=== PATIENT | female | born 1980 | race Caucasian/White ===

== ENCOUNTER 2021-12-28 14:49 | Emergency (ER) | payer MEDICAID ==
[~2021-12-28] VITALS: Ht 152.4 cm; Wt 77.0 kg
[2021-12-28 18:31] LABS: CLARITY URINE CLEAR (CLEAR); COLOR URINE YELLOW (YELLOW); KETONES URINE NEGATIVE (NEGATIVE); LEUKOCYTE ESTERASE URINE NEGATIVE (NEGATIVE); NITRITE URINE NEGATIVE (NEGATIVE); OCCULT BLOOD URINE 2+ (NEGATIVE); PH URINE 5.5 (4.5-8.0); PROTEIN URINE NEGATIVE (NEGATIVE); UROBILINOGEN URINE 0.2 E.U./dL (0.2-1.0)
[2021-12-28 18:44] LABS: CHLORIDE 104 mEq/L (98-107)
[2021-12-28 18:48] LABS: BASOPHILS % 0.4 % (0.0-2.0); EOSINOPHILS % 1.8 % (0.0-5.0); HEMOGLOBIN. 12.6 g/dL (12.0-16.0); LYMPHOCYTES % 37.8 % (20.0-50.0); MEAN CORPUSCULAR HEMOGLOBIN 29.9 pg (28.0-32.0); MEAN PLATELET VOLUME 9.5 fl (7.4-10.4); MONOCYTES % 7.5 % (2.0-8.0); NEUTROPHILS % 52.5 % (40.0-76.0); PLATELET 237 x1000/uL (130-400); RED CELL DISTRIBUTION WIDTH 13.5 % (11.6-14.6)
[2021-12-28] MEDS ORDERED: KETOROLAC 60MG/2ML VIAL IM ONE (19:15)
[2021-12-28 19:42] VITALS: BP 138/82
[2021-12-28] MEDS ORDERED: IBUP-2029 MT (20:58)
== END 2021-12-28 21:15 | disposition home or self-care (01) ==
LOC: ER 14:49
DX: M25.531 Pain in right wrist (principal); M65.9 Synovitis and tenosynovitis, unspecified
CPT/HCPCS: 36415; 73120; 80053; 81003; 81025; 83690; 85025; 93971; 96372; 99285; J1885

== ENCOUNTER 2023-01-03 16:49 | Emergency (ER) | payer MEDICAID ==
[~2023-01-03] VITALS: Ht 160 cm; Wt 73.0 kg
[~2023-01-03 16:49] MED LIST: IBUP-2029 MT
[2023-01-03] MEDS ORDERED: ACETAMINOPHEN 325MG TABLET PO ONE (17:45)
[2023-01-03] MEDS ORDERED: IBUPROFEN 400MG TABLET PO ONE (17:45)
[2023-01-03] MEDS ORDERED: DEXAMETHASONE 4MG TABLET PO ONE (17:45)
[2023-01-03] MEDS ORDERED: TOPUD PO (17:54)
[2023-01-03] MEDS ORDERED: IBUP-2028 MT (17:54)
[2023-01-03 18:14] VITALS: BP 127/76
== END 2023-01-03 18:15 | disposition home or self-care (01) ==
LOC: ER 16:49
DX: J02.9 Acute pharyngitis, unspecified (principal); R50.9 Fever, unspecified; M79.10 Myalgia, unspecified site; Z20.822 Contact with and (suspected) exposure to COVID-19
CPT/HCPCS: 87426; 87804; 99284; C9803; J8540